=== PATIENT | male | born 1985 | race African-American/Black ===

== ENCOUNTER 2016-09-23 16:17 | Emergency (ER) | payer OTHER, MEDICAID ==
[~2016-09-23] VITALS: Ht 188 cm; Wt 132.0 kg
[~2016-09-23 16:17] MED LIST: BUSP5TAB3 PO; DEPA250T2 PO; DICL75 PO; DIME240C; PRAZ2 PO; PROC1TAB8 PO; SERT-129 PO; TOPI25CA PO; VITA100020 SL
[2016-09-23 16:18] VITALS: BP 140/85; PULSE 112; RESP 20; TEMP 97.1; O2SAT 94
--- NOTE | 2016-09-23 17:37 | PD ---
HPI Chief Complaint: Abdominal Pain Time Seen by Provider: 17:33 Travel History International Travel<30 days: No Contact w/Intl Traveler<30days: No Traveled to known affect area: No History of Present Illness HPI Patient's 31-year-old male presenting to emergency for evaluation of right lower quadrant pain. Patient states the pain is been ongoing for 3 days. He went to his primary doctor this morning who advised him to come to emergency department for evaluation. Patient also endorses nausea with no vomiting. He states pain is intermittent, it starts to ache and then goes to stabbing his gotten progressively worse over the last 3 days. He states the pain is currently a 4 out of 10. He denies any changes bowel habits, shortness of breath, chest pain, fever, chills. Patient's past medical history significant for multiple sclerosis, migraines, depression. PFSH Past Medical History Autoimmune Disease: Yes (multiple sclerosis) Depression: Yes Chest Pain: Yes Diabetes: No Diminished Hearing: No Psychiatric: Yes (PTSD) Migraines: Yes Seizures: No Social History Alcohol Use: Yes Tobacco Use: Yes Substance Use: No (PT DENIES) Allergies-Medications (Allergen,Severity, Reaction): Coded Allergies: Flu Vaccine (Verified Allergy, Severe, 09/23/16) Reported Meds & Prescriptions Reported Meds & Active Scripts Active Compazine 10 Mg Tab (Prochlorperazine Maleate) 10 Mg Tab 10 Mg PO TID PRN TAKE WITH BENADRYL Reported Vitamin B-12 1000 MCG SL TAB (Cyanocobalamin) 1,000 Mcg Subl 1,000 Mcg SL DAILY Topiramate 25 Mg Cap 25 Mg PO BID Sertraline 100 mg (Sertraline HCl) 100 Mg Tab 2 Tab PO DAILY Buspar (Buspirone HCl) 5 Mg Tab 5 Mg PO TID Tecfidera (Dimethyl Fumarate) 240 Mg Cap BID Diclofenac Sodium 75 Mg Tab 75 Mg PO BID Prazosin Hcl (Prazosin HCl) 2 Mg Cap 2 Mg PO Q12 Depakote 250 mg (Divalproex Sodium) 250 Mg Tab 1,500 Mg PO HS Review of Systems Except as stated in HPI: all other systems reviewed are Neg Gastrointestinal: Positive: Nausea, Abdominal Pain Physical Exam Narrative GENERAL: Obese, well-developed, alert Afro-Vincentian male. Appears uncomfortable , no acute distress. SKIN: Warm and dry. HEAD: Atraumatic. Normocephalic. EYES: Pupils equal and round. No scleral icterus. No injection or drainage. ENT: No nasal bleeding or discharge. Mucous membranes pink and moist. NECK: Trachea midline. No JVD. CARDIOVASCULAR: Tachycardic. No murmur appreciated. RESPIRATORY: No accessory muscle use. Clear to auscultation. Breath sounds equal bilaterally. GASTROINTESTINAL: Abdomen soft, moderate tenderness to palpation in right lower quadrant, positive guarding, no rebound. Positive bowel sounds. MUSCULOSKELETAL: No obvious deformities. No clubbing. No cyanosis. No edema. NEUROLOGICAL: Awake and alert. No obvious cranial nerve deficits. Motor grossly within normal limits. Normal speech. PSYCHIATRIC: Appropriate mood and affect; insight and judgment normal. Data Data Last Documented VS Vital Signs Date Time Temp Pulse Resp B/P Pulse Ox O2 Delivery O2 Flow Rate FiO2 09/23/16 16:18 97.1 112 20 140/85 94 Room Air MDM Medical Decision Making Medical Screen Exam Complete: Yes Emergency Medical Condition: Yes Interpretation(s) Vital Signs Date Time Temp Pulse Resp B/P Pulse Ox O2 Delivery O2 Flow Rate FiO2 09/23/16 16:18 97.1 112 20 140/85 94 Room Air Differential Diagnosis Appendicitis versus diverticulitis versus musculoskeletal pain versus obstruction versus enteritis versus other Narrative Course Patient is a 31-year-old male presenting to the emergency department on the advice of his primary doctor for evaluation of right lower quadrant pain that started 3 days ago. Patient is tender on exam, he is mildly nauseated. His vital signs reveal an elevated heart rate at 112 otherwise his vital signs are stable. Patient removed medical bed at this time for further evaluation management. Labs ordered and pending. Care patient will be assumed by provider medical pod Nan Pimentel Sep 23, 2016 17:37
[2016-09-23] MEDS ORDERED: SODIUM CHLORIDE 0.9% FLUSH 5 ML FLUSH IVF PRN (17:45)
[2016-09-23 17:53] VITALS: BP 157/95; PULSE 98; RESP 20; TEMP 98.3; O2SAT 94
[2016-09-23] MEDS ORDERED: ERGO1CAP10 PO (17:53)
[2016-09-23] MEDS ORDERED: DIME120C PO (17:53)
[2016-09-23] MEDS ORDERED: BACL10TA PO (17:53)
--- NOTE | 2016-09-23 17:56 | PD ---
Physical Exam Narrative 31-year-old male complains of coughing congestion and right lower quadrant abdominal pain. Patient states the coughing congestion started a week ago. Patient states that the cough is nonproductive persistent cough. Patient denies any chest pain or shortness of breath. Patient states that he started having sharp intermittent right lower quadrant abdominal pain for the past 2 days. Patient denies any pain radiation. Patient denies any nausea vomiting diarrhea. Patient denies any dysuria or frequency. Patient denies any fever chills. Patient was seen by personal physician today and referred the ED for evaluation. On a scale of 1-10 the pain is a 4. On physical examination the lung is clear. Patient has mild tenderness on palpation right lower quadrant of the abdomen. No rebound tenderness. No mass. Data Data Last Documented VS Vital Signs Date Time Temp Pulse Resp B/P Pulse Ox O2 Delivery O2 Flow Rate FiO2 09/23/16 16:18 97.1 112 20 140/85 94 Room Air Orders Complete Blood Count With Diff (09/23/16 17:33) Comprehensive Metabolic Panel (09/23/16 17:33) Lipase (09/23/16 17:33) Lactic Acid (09/23/16 17:33) Prothrombin Time / Inr (Pt) (09/23/16 17:33) Act Partial Throm Time (Ptt) (09/23/16 17:33) Urinalysis - C+S If Indicated (09/23/16 17:33) Sodium Chloride 0.9% Flush (Ns Flush) (09/23/16 17:45) Ct Abd/Pel W Iv Contrast(Rout) (09/23/16 17:49) Chest, Single Ap (09/23/16 17:49) [facility] Supervised Visit with MARVIN: Yes Tolu Sanders MD Sep 23, 2016 17:56
[2016-09-23] MEDS ORDERED: SODIUM CHLOR 0.9% 1000 ML INJ 1,000 ML IV SCH (18:00)
[2016-09-23] MEDS ORDERED: ONDANSETRON HCL 4 MG/2 ML VIAL IV PUSH ONE (18:00)
[2016-09-23] MEDS ORDERED: MORPHINE SULFATE 4 MG/ML INJ IV PUSH ONE (18:00)
[2016-09-23 18:04] LABS: BASOPHIL % 0.5 % (0.0-2.0); EOSINOPHIL # 0.1 TH/MM3 (0-0.4); EOSINOPHIL % 1.6 % (0.0-4.0); HEMO FLAGS DIFF FINAL; MEAN CELL VOLUME 89.4 FL (80.0-100.0); MEAN CORPUSCULAR HEMOGLOBIN 31.2 PG (27.0-34.0); MEAN CORPUSCULAR HGB CONC 34.9 % (32.0-36.0); NEUT % 60.9 % (16.0-70.0); PLATELET COUNT 215 TH/MM3 (150-450); RED BLOOD COUNT 4.92 MIL/MM3 (4.50-5.90); RED CELL DISTRIBUTION WIDTH 12.8 % (11.6-17.2); WHITE BLOOD COUNT 8.2 TH/MM3 (4.0-11.0)
[2016-09-23 18:09] LABS: APTT (PATIENT) 26.6 SEC (24.3-30.1); PROTHROMBIN TIME - PATIENT 10.5 SEC (9.8-11.6)
--- NOTE | 2016-09-23 18:12 | RADRPT ---
EXAM DATE/TIME: 09/23/2016 18:03 [facility] COMPARISON: CHEST PA & LAT, January 31, 2015, 9:41. INDICATIONS : Cough. MEDICAL HISTORY : None. SURGICAL HISTORY : None. ENCOUNTER: Initial ACUITY: 1 week PAIN SCORE: 0/10 LOCATION: Bilateral chest FINDINGS: A single view of the chest demonstrates the lungs to be symmetrically aerated without evidence of mas s, infiltrate or effusion. The cardiomediastinal contours are unremarkable. Osseous structures are intact. CONCLUSION: No evidence of acute cardiopulmonary disease. Lj Cantu MD on September 23, 2016 at 18:08 Board Certified Radiologist. This report was verified electronically.
[2016-09-23 18:17] LABS: BLOOD, URINE NEG (NEG); COMMENT (UR) CULT NOT INDICATED; CULTURE IF INDICATED CULT NOT INDICATED; GLUCOSE,URINE NEG (NEG); KETONE, URINE NEG (NEG); MUCUS URINE FEW /lpf (OCC); NITRITE,URINE NEG (NEG); SQUAMOUS EPITHELIAL CELL URINE <1 /hpf (0-5); URINE COLOR YELLOW (YELLW/STRAW)
[2016-09-23 18:28] LABS: ALKALINE PHOSPHATASE 74 U/L (45-117); TOTAL BILIRUBIN ADULT 0.4 MG/DL (0.2-1.0)
[2016-09-23 18:29] LABS: ALT (GPT) 59 U/L (12-78); ANION GAP 9 MEQ/L (5-15); AST (GOT) 36 U/L (15-37); BICARBONATE 25.3 MEQ/L (21.0-32.0); BLOOD UREA NITROGEN 12 MG/DL (7-18); CHLORIDE 108 MEQ/L (98-107); GLOMERULAR FILTRATION RATE 120 ML/MIN (>89); POTASSIUM 4.1 MEQ/L (3.5-5.1); SODIUM (NA) 142 MEQ/L (136-145)
--- NOTE | 2016-09-23 19:14 | PD ---
Physical Exam Narrative General: The patient is a well-developed well-nourished male in no acute distress. Head and Neck exam: Head is normocephalic atraumatic. Eyes: Pupils are equal round and reactive to light. Nose: Midline septum with erythematous edematous nasal mucosa and a yellow nasal discharge. Mouth: Dentition unremarkable. Moist mucus membranes. Posterior oropharynx is erythematous. No tonsillar hypertrophy. Uvula midline. Airway patent. Neck: No palpable lymphadenopathy. No nuchal rigidity. No thyromegaly. Cardiovascular: Regular rate and rhythm without murmurs, gallops, or rubs. Lungs: Clear to auscultation bilaterally. No wheezes, rhonchi, or rales. Abdomen: Soft, with discomfort on palpation in the right lower quadrant of the abdomen. No other tenderness on palpation of the other quadrants of the abdomen or the suprapubic area. No guarding, rebound, or rigidity. Normal bowel sounds are audible. Negative Chong's sign. Extremities: No clubbing, cyanosis, or edema. Back: No spinous process tenderness to palpation. No costovertebral angle tenderness to palpation. Neurologic Exam: Grossly nonfocal. Skin Exam: No rash noted. Intact skin that is warm and dry. Data Data Last Documented VS Vital Signs Date Time Temp Pulse Resp B/P Pulse Ox O2 Delivery O2 Flow Rate FiO2 09/23/16 20:00 93 16 143/70 96 Room Air 09/23/16 17:53 98.3 Orders Complete Blood Count With Diff (09/23/16 17:33) Comprehensive Metabolic Panel (09/23/16 17:33) Lipase (09/23/16 17:33) Lactic Acid (09/23/16 17:33) Prothrombin Time / Inr (Pt) (09/23/16 17:33) Act Partial Throm Time (Ptt) (09/23/16 17:33) Urinalysis - C+S If Indicated (09/23/16 17:33) Sodium Chloride 0.9% Flush (Ns Flush) (09/23/16 17:45) Ct Abd/Pel W Iv Contrast(Rout) (09/23/16 17:49) Chest, Single Ap (09/23/16 17:49) Morphine Inj (Morphine Inj) (09/23/16 18:00) Ondansetron Inj (Zofran Inj) (09/23/16 18:00) Sodium Chlor 0.9% 1000 Ml Inj (Ns 1000 M (09/23/16 18:00) Iohexol 350 Inj (Omnipaque 350 Inj) (09/23/16 19:40) Labs Laboratory Tests Test 09/23/16 09/23/16 17:40 17:55 White Blood Count 8.2 TH/MM3 Red Blood Count 4.92 MIL/MM3 Hemoglobin 15.3 GM/DL Hematocrit 44.0 % Mean Corpuscular Volume 89.4 FL Mean Corpuscular Hemoglobin 31.2 PG Mean Corpuscular Hemoglobin 34.9 % Concent Red Cell Distribution Width 12.8 % Platelet Count 215 TH/MM3 Mean Platelet Volume 8.2 FL Neutrophils (%) (Auto) 60.9 % Lymphocytes (%) (Auto) 24.0 % Monocytes (%) (Auto) 13.0 % Eosinophils (%) (Auto) 1.6 % Basophils (%) (Auto) 0.5 % Neutrophils # (Auto) 5.0 TH/MM3 Lymphocytes # (Auto) 2.0 TH/MM3 Monocytes # (Auto) 1.1 TH/MM3 Eosinophils # (Auto) 0.1 TH/MM3 Basophils # (Auto) 0.0 TH/MM3 CBC Comment DIFF FINAL Differential Comment Prothrombin Time 10.5 SEC Prothromb Time International 1.0 RATIO Ratio Activated Partial 26.6 SEC Thromboplast Time Sodium Level 142 MEQ/L Potassium Level 4.1 MEQ/L Chloride Level 108 MEQ/L Carbon Dioxide Level 25.3 MEQ/L Anion Gap 9 MEQ/L Blood Urea Nitrogen 12 MG/DL Creatinine 0.90 MG/DL Estimat Glomerular Filtration 120 ML/MIN Rate Random Glucose 100 MG/DL Lactic Acid Level 1.3 mmol/L Calcium Level 8.9 MG/DL Total Bilirubin 0.4 MG/DL Aspartate Amino Transf 36 U/L (AST/SGOT) Alanine Aminotransferase 59 U/L (ALT/SGPT) Alkaline Phosphatase 74 U/L Total Protein 7.6 GM/DL Albumin 3.9 GM/DL Lipase 111 U/L Urine Color YELLOW Urine Turbidity CLEAR Urine pH 7.0 Urine Specific [place] 1.028 Urine Protein NEG mg/dL Urine Glucose (UA) NEG mg/dL Urine Ketones NEG mg/dL Urine Occult Blood NEG Urine Nitrite NEG Urine Bilirubin NEG Urine Urobilinogen 2.0 MG/DL Urine Leukocyte Esterase NEG Urine RBC 1 /hpf Urine WBC 1 /hpf Urine Squamous Epithelial <1 /hpf Cells Urine Mucus FEW /lpf Microscopic Urinalysis Comment CULT NOT INDICATED MDM Medical Record Reviewed: Yes Supervised Visit with MARVIN: No Narrative Course During the course of the patients emergency department visit, the patients history, examination, and differential diagnosis were reviewed with the patient. The patient had IV access obtained and blood work sent for analysis. The patient was checked out to me by Dr. Sanders. Please see his complete history and physical. The patient reportedly presented with cough, congestion, subsequently followed by right lower quadrant abdominal pain. The patients laboratory studies were reviewed and remarkable for a white count of 8.2, hemoglobin 15.3, platelets 2:15 with 13 monocytes, CMP is unremarkable, lipase 111, lactate 1.3, PT PTT unremarkable. Urinalysis unremarkable, no signs of infection, chest x-ray showed no acute abnormality. CT scan of the abdomen and pelvis reveals apparent mild wall thickening of the urinary bladder , cystitis possible in the proper clinical setting, fatty liver, otherwise essentially normal CT scan of the abdomen and pelvis, normal appendix. The patient will be discharged home with a prescription for azithromycin given his upper respiratory symptoms, sinusitis, bronchitis. The patient was instructed regarding the importance of following up closely with his primary care physician for reexamination The patient is resting comfortably and feels better, is alert and in no distress. The patients results and examination findings were discussed with the patient. The repeat examination is unremarkable and benign. The history, exam, diagnostic testing, and current condition do not suggest any significant pathology to warrant further testing, continued ED treatment, admission, or surgical evaluation at this point. The vital signs have been stable. The patient does not have uncontrollable pain, intractable vomiting, or other significant symptoms. The patient's condition is stable and appropriate for discharge. The patient will pursue further outpatient evaluation with a primary care physician or other designated or consulting physician as indicated in the discharge instructions. The patient expressed understanding and was agreeable with this plan. Diagnosis Primary Impression: Bronchitis Additional Impression: Abdominal pain Qualified Code: R10.31 - Right lower quadrant abdominal pain Referrals: Primary Care Physician Patient Instructions: Abdominal Pain (ED), Acute Bronchitis (ED), General Instructions Med/Other Pt SpecificInfo: Prescription(s) given Scripts Azithromycin (Zithromax Z-Jerome)250 Mg [id number] Mg PO DIRECTED #1 DSPK Ref 0 500 MG (2 tabs) day 1, then 1 tab days 2-5. Prov:Liza Abdi MD 09/23/16 Disposition: 01 DISCHARGE HOME Condition: Stable Liza Abdi MD Sep 23, 2016 19:14
[2016-09-23] MEDS ORDERED: IOHEXOL 350 MG/ML 10 ML VIAL (for RAD DIAG) IV ONE (19:40)
--- NOTE | 2016-09-23 19:55 | RADRPT ---
EXAM DATE/TIME: 09/23/2016 19:34 [facility] COMPARISON: No previous studies available for comparison. INDICATIONS : Right lower qaudrant pain with nausea past 3 days. IV CONTRAST: 96 cc Omnipaque 350 (iohexol) IV ORAL CONTRAST: No oral contrast ingested. RADIATION DOSE: 25.69 CTDIvol (mGy) MEDICAL HISTORY : None SURGICAL HISTORY : None. ENCOUNTER: Initial ACUITY: 3 days PAIN SCALE: 6/10 LOCATION: Right lower quadrant TECHNIQUE: Volumetric scanning of the abdomen and pelvis was performed. Using automated exposure control and ad justment of the mA and/or kV according to patient size, radiation dose was kept as low as reasonably achievable to obtain optimal diagnostic quality images. FINDINGS: Liver is fatty. Spleen, pancreas, adrenal glands and kidneys are all normal. No obstruction or inflammatory changes are seen of the GI tract. The appendix is well-visualized and normal. Only a small amount of urine in the bladder at the time of imaging. Accounting for this, there seems to be some wall thickening. CONCLUSION: 1. Apparent mild wall thickening of the urinary bladder. Cystitis possible in the proper clinical set ting. 2. Fatty liver. 3. Otherwise essentially normal CT of the abdomen and pelvis. Normal appendix. Lj Cantu MD on September 23, 2016 at 19:51 Board Certified Radiologist. This report was verified electronically.
[2016-09-23 20:00] VITALS: BP 143/70; PULSE 93; RESP 16; O2SAT 96
[2016-09-23] MEDS ORDERED: ZITHTAB PO (20:23)
== END 2016-09-24 00:43 | disposition home or self-care (01) ==
LOC: NEPC 16:17
DX: J40 Bronchitis, not specified as acute or chronic (principal); R10.31 Right lower quadrant pain; Z72.0 Tobacco use
CPT/HCPCS: 71010; 74177; 80053; 81001; 83605; 83690; 85025; 85610; 85730; 96374; 96375; 99284; J2270; J2405; J7030; Q9967

== ENCOUNTER 2017-01-02 03:14 | Emergency (ER) | payer OTHER, MEDICAID ==
[~2017-01-02] VITALS: Ht 188 cm; Wt 127.3 kg
[~2017-01-02 03:14] MED LIST changes: +BACL10TA PO; -BUSP5TAB3 PO; -DEPA250T2 PO; -DICL75 PO; +DIME120C PO; -DIME240C; +ERGO1CAP10 PO; -PRAZ2 PO; -PROC1TAB8 PO; -SERT-129 PO; -TOPI25CA PO; -VITA100020 SL; +ZITHTAB PO
[2017-01-02 03:17] VITALS: BP 135/79; PULSE 95; RESP 16; TEMP 97.9; O2SAT 98
[2017-01-02 03:23] VITALS: BP 112/63
[2017-01-02] MEDS ORDERED: SODIUM CHLOR 0.9% 1000 ML INJ 1,000 ML IV ONE ×2 (03:31→03:45)
[2017-01-02] MEDS ORDERED: TOPI1CAP16 PO (03:35)
[2017-01-02] MEDS ORDERED: VENL50TA PO (03:35)
[2017-01-02] MEDS ORDERED: PRAZ2CAP PO (03:39)
[2017-01-02] MEDS ORDERED: SODIUM CHLORIDE 0.9% FLUSH 10 ML FLUSH IVF PRN (03:45)
[2017-01-02 03:57] LABS: AUTOMATED NEUTROPHIL # 9.2 TH/MM3 (1.8-7.7); BASOPHIL # 0.1 TH/MM3 (0-0.2); BASOPHIL % 0.6 % (0.0-2.0); EOSINOPHIL % 0.2 % (0.0-4.0); HEMATOCRIT 44.6 % (39.0-51.0); HEMO FLAGS DIFF FINAL; LYMPH % 14.7 % (9.0-44.0); LYMPHOCYTE # 1.7 TH/MM3 (1.0-4.8); MEAN CELL VOLUME 89.9 FL (80.0-100.0); MEAN CORPUSCULAR HEMOGLOBIN 30.8 PG (27.0-34.0); MEAN CORPUSCULAR HGB CONC 34.2 % (32.0-36.0); MONO % 7.1 % (0.0-8.0); NEUT % 77.4 % (16.0-70.0); PLATELET COUNT 209 TH/MM3 (150-450); RED BLOOD COUNT 4.96 MIL/MM3 (4.50-5.90); RED CELL DISTRIBUTION WIDTH 12.9 % (11.6-17.2); WHITE BLOOD COUNT 11.9 TH/MM3 (4.0-11.0)
[2017-01-02 04:15] LABS: ALKALINE PHOSPHATASE 79 U/L (45-117); TOTAL BILIRUBIN ADULT 0.5 MG/DL (0.2-1.0)
[2017-01-02 04:19] LABS: ALT (GPT) 67 U/L (12-78); ANION GAP 10 MEQ/L (5-15); APTT (PATIENT) 25.1 SEC (24.3-30.1); AST (GOT) 47 U/L (15-37); BICARBONATE 22.1 MEQ/L (21.0-32.0); BLOOD UREA NITROGEN 12 MG/DL (7-18); CHLORIDE 107 MEQ/L (98-107); GLOMERULAR FILTRATION RATE 111 ML/MIN (>89); MAGNESIUM 2.1 MG/DL (1.5-2.5); POTASSIUM 3.9 MEQ/L (3.5-5.1); PROTHROMBIN TIME - PATIENT 11.1 SEC (9.8-11.6); SODIUM (NA) 139 MEQ/L (136-145)
[2017-01-02 04:23] LABS: ACETAMINOPHEN LESS THAN 2.0 MCG/ML (10.0-30.0)
[2017-01-02] MEDS ORDERED: ONDANSETRON HCL 4 MG/2 ML VIAL IV PUSH ONE (04:30)
--- NOTE | 2017-01-02 04:58 | PD ---
HPI Chief Complaint: Altered Mental Status Time Seen by Provider: 03:31 Travel History International Travel<30 days: No Contact w/Intl Traveler<30days: No Traveled to known affect area: No History of Present Illness HPI 31-year-old male presents to the emergency department by private transportation for complaint of not feeling well after taking his medication for depression multiple sclerosis drinking alcohol and smoking marijuana. Patient has been on his current medications for a very long time no recent adjustment to the medications. Patient reports she does not normally drink alcohol or smoke marijuana with these medications. Patient states he feels anxious and weak as well as has broken out to a sweat confused and very concerned that something wrong is occurring. Patient denies any suicidal or homicidal ideology. Patient 's had no recent febrile illness. Patient states his entire body hurts 15/10 in intensity. Patient complains of muscle cramping. Patient denies any injury or fall. PFSH Past Medical History Narrative Medical Depression multiple sclerosis chest pain posttraumatic stress disorder migraine ; alcohol use tobacco use marijuana use; nursing notes reviewed Autoimmune Disease: Yes (multiple sclerosis) Depression: Yes Chest Pain: Yes Diabetes: No Diminished Hearing: No Psychiatric: Yes (PTSD) Migraines: Yes Seizures: No Social History Alcohol Use: Yes (RARE) Tobacco Use: Yes (CIGARS) Substance Use: Yes (CANNABIS) Allergies-Medications (Allergen,Severity, Reaction): Coded Allergies: Flu Vaccine (Verified Allergy, Severe, 09/23/16) Reported Meds & Prescriptions Reported Meds & Active Scripts Active Reported Prazosin (Prazosin HCl) 2 Mg Cap 2 Mg PO BID Effexor (Venlafaxine HCl) 50 Mg Tab 50 Mg PO Q8H Topiramate ER (Topiramate) 25 Mg Cap 25 Mg PO DAILY Tecfidera (Dimethyl Fumarate) 120 Mg Cap 120 Mg PO BID For 7 days Baclofen 10 Mg Tab 10 Mg PO HS Review of Systems Except as stated in HPI: all other systems reviewed are Neg General / Constitutional: No: Fever, Chills HENT: No: Congestion Cardiovascular: Positive: Chest Pain or Discomfort Respiratory: Positive: Shortness of Breath Gastrointestinal: Positive: Nausea Genitourinary: Positive: Flank Pain Musculoskeletal: Positive: Myalgias, Arthralgias, Cramping, Pain Skin: No Rash Neurologic: Positive: Weakness, Dizziness, No: Syncope, Focal Abnormalities, Coordination Problem Psychiatric: Positive: Anxiety, Substance Abuse, No: Suicidal Ideations, Homicidal Ideation Endocrine: No: Heat Intolerance Hematologic/Lymphatic: No: Easy Bruising Physical Exam Narrative GENERAL: Well-developed well-nourished male appears anxious diaphoretic and no respiratory distress; GCS 14 SKIN: Warm and diaphoretic. HEAD: Atraumatic. Normocephalic. EYES: Pupils equal and round. No scleral icterus. No injection or drainage. ENT: No nasal bleeding or discharge. Mucous membranes pink and moist. NECK: Trachea midline. No JVD. CARDIOVASCULAR: Increased Regular rate and rhythm. RESPIRATORY: No accessory muscle use. Clear to auscultation. Breath sounds equal bilaterally. GASTROINTESTINAL: Abdomen soft, non-tender, nondistended. Hepatic and splenic margins not palpable. MUSCULOSKELETAL: Extremities without clubbing, cyanosis, or edema. No obvious deformities. NEUROLOGICAL: Awake and alert. No obvious cranial nerve deficits. Motor grossly within normal limits. Five out of 5 muscle strength in the arms and legs. Normal speech. PSYCHIATRIC: Anxious mood and affect; insight and judgment normal. Data Data Last Documented VS Vital Signs Date Time Temp Pulse Resp B/P Pulse Ox O2 Delivery O2 Flow Rate FiO2 01/02/17 07:11 109 16 98 01/02/17 06:01 147/68 Room Air 01/02/17 03:17 97.9 Orders Electrocardiogram (01/02/17 03:31) Complete Blood Count With Diff (01/02/17 03:31) Comprehensive Metabolic Panel (01/02/17 03:31) Prothrombin Time / Inr (Pt) (01/02/17 03:31) Act Partial Throm Time (Ptt) (01/02/17 03:31) Urinalysis - C+S If Indicated (01/02/17 03:31) Chest, Single Ap (01/02/17 03:31) Blood Glucose (01/02/17 03:31) Iv Access Insert/Monitor (01/02/17 03:31) Ecg Monitoring (01/02/17 03:31) Oximetry (01/02/17 03:31) Sodium Chloride 0.9% Flush (Ns Flush) (01/02/17 03:45) Sodium Chlor 0.9% 1000 Ml Inj (Ns 1000 M (01/02/17 03:31) Drug Screen, Random Urine (01/02/17 03:31) Alcohol (Ethanol) (01/02/17 03:31) Salicylates (Aspirin) (01/02/17 03:31) Tylenol (Acetaminophen) (01/02/17 03:31) Magnesium (Mg) (01/02/17 03:31) Valproic Acid (Depakene) (01/02/17 03:31) Sodium Chlor 0.9% 1000 Ml Inj (Ns 1000 M (01/02/17 03:45) Troponin I (01/02/17 03:35) Ondansetron Inj (Zofran Inj) (01/02/17 04:30) Ketorolac Inj (Toradol Inj) (01/02/17 06:30) Labs Laboratory Tests Test 01/02/17 01/02/17 03:35 05:55 White Blood Count 11.9 TH/MM3 Red Blood Count 4.96 MIL/MM3 Hemoglobin 15.3 GM/DL Hematocrit 44.6 % Mean Corpuscular Volume 89.9 FL Mean Corpuscular Hemoglobin 30.8 PG Mean Corpuscular Hemoglobin 34.2 % Concent Red Cell Distribution Width 12.9 % Platelet Count 209 TH/MM3 Mean Platelet Volume 8.4 FL Neutrophils (%) (Auto) 77.4 % Lymphocytes (%) (Auto) 14.7 % Monocytes (%) (Auto) 7.1 % Eosinophils (%) (Auto) 0.2 % Basophils (%) (Auto) 0.6 % Neutrophils # (Auto) 9.2 TH/MM3 Lymphocytes # (Auto) 1.7 TH/MM3 Monocytes # (Auto) 0.8 TH/MM3 Eosinophils # (Auto) 0.0 TH/MM3 Basophils # (Auto) 0.1 TH/MM3 CBC Comment DIFF FINAL Differential Comment Prothrombin Time 11.1 SEC Prothromb Time International 1.0 RATIO Ratio Activated Partial 25.1 SEC Thromboplast Time Sodium Level 139 MEQ/L Potassium Level 3.9 MEQ/L Chloride Level 107 MEQ/L Carbon Dioxide Level 22.1 MEQ/L Anion Gap 10 MEQ/L Blood Urea Nitrogen 12 MG/DL Creatinine 0.96 MG/DL Estimat Glomerular Filtration 111 ML/MIN Rate Random Glucose 155 MG/DL Calcium Level 9.2 MG/DL Magnesium Level 2.1 MG/DL Total Bilirubin 0.5 MG/DL Aspartate Amino Transf 47 U/L (AST/SGOT) Alanine Aminotransferase 67 U/L (ALT/SGPT) Alkaline Phosphatase 79 U/L Troponin I LESS THAN 0.02 NG/ML Total Protein 8.0 GM/DL Albumin 4.3 GM/DL Salicylates Level 1.9 MG/DL Acetaminophen Level LESS THAN 2.0 MCG/ML Valproic Acid (Depakene) Level LESS THAN 3 MCG/ML Ethyl Alcohol Level 3 MG/DL Urine Color YELLOW Urine Turbidity CLEAR Urine pH 8.5 Urine Specific [place] 1.016 Urine Protein 30 mg/dL Urine Glucose (UA) NEG mg/dL Urine Ketones NEG mg/dL Urine Occult Blood NEG Urine Nitrite NEG Urine Bilirubin NEG Urine Urobilinogen 2.0 MG/DL Urine Leukocyte Esterase NEG Urine RBC LESS THAN 1 /hpf Urine WBC LESS THAN 1 /hpf Urine Mucus FEW /lpf Microscopic Urinalysis Comment CULT NOT INDICATED Urine Opiates Screen NEG Urine Barbiturates Screen NEG Urine Amphetamines Screen NEG Urine Benzodiazepines Screen NEG Urine Cocaine Screen NEG Urine Cannabinoids Screen POS MDM Medical Decision Making Medical Screen Exam Complete: Yes Emergency Medical Condition: Yes Medical Record Reviewed: Yes Interpretation(s) EKG: Sinus tachycardia no acute ST elevation or injury pattern change noted troponin I: less than 0.02, not elevated Vital Signs Date Time Temp Pulse Resp B/P Pulse Ox O2 Delivery O2 Flow Rate FiO2 01/02/17 03:23 112/63 01/02/17 03:17 97.9 95 16 135/79 98 Room Air CBC & BMP Diagram 01/02/17 03:35 UDS: Cannabis Serum alcohol: 3, not elevated Salicylate: 1.9, not elevated Acetaminophen: Less than 2.0, not elevated Urinalysis: Within normal range Differential Diagnosis Polysubstance ingestion, overdose accidental versus intentional, alcohol intoxication, electrolyte disturbance, arrhythmia, ACS, TIA, MS exacerbation Narrative Course Patient placed on cardiac catheterization technician IV access obtained specimens collected and sent for resulting; patient administered normal saline bolus 1 L along with Zofran 4 mg IV Lab values pending patient clinically improving; gcs 15 Lab values in normal range Patient clinically improving (gcs 15) states that he knew better than to mix his medications with alcohol and marijuana but he had had an argument with his and when he gets angry sometimes he drinks; patient states symptoms do not remind him of a flare of his multiple sclerosis; last MS flare was approximately 2 weeks ago and affected his left knee and foot. Patient reports he is upset because he has appointment this morning in [place] at 10:30 AM [facility] and needs to make that appointment Urinalysis is normal urine tox screen is consistent with cannabis. Will attempt trial of oral hydration Diagnosis Primary Impression: Adverse drug interaction Qualified Code: T50.905A - Adverse drug interaction, initial encounter Referrals: Neurologist 1 day Keep appointment as scheduled Primary Care Physician call for appointment Patient Instructions: General Instructions Additional Instructions: Increase fluid hydration Follow-up with your primary care provider Follow-up with your neurologist as scheduled Return to the emergency department for any concerns or change in condition Continue current medications as per the prescribed Avoid any recreational drugs or alcohol on your current medication regimen Med/Other Pt SpecificInfo: No Change to Meds Disposition: 01 DISCHARGE HOME Condition: Stable Millie Back MD Jan 02, 2017 04:58
--- NOTE | 2017-01-02 04:59 | RADRPT ---
EXAM DATE/TIME: 01/02/2017 03:48 [facility] COMPARISON: CHEST SINGLE AP, September 23, 2016, 18:03. INDICATIONS : Body cramps due to a reaction to a new medication. MEDICAL HISTORY : None. SURGICAL HISTORY : None. ENCOUNTER: Initial ACUITY: 1 day PAIN SCORE: 10/10 LOCATION: Bilateral Entire Body FINDINGS: A single view of the chest demonstrates the lungs to be symmetrically aerated without evidence of mas s, infiltrate or effusion. The cardiomediastinal contours are unremarkable. Osseous structures are intact. CONCLUSION: No acute disease. Lj Cooney MD on January 02, 2017 at 4:56 Board Certified Radiologist. This report was verified electronically.
[2017-01-02 06:01] VITALS: BP 147/68; PULSE 114; RESP 18; O2SAT 96
[2017-01-02 06:04] LABS: BLOOD, URINE NEG (NEG); COMMENT (UR) CULT NOT INDICATED; CULTURE IF INDICATED CULT NOT INDICATED; GLUCOSE,URINE NEG (NEG); KETONE, URINE NEG (NEG); MUCUS URINE FEW /lpf (OCC); NITRITE,URINE NEG (NEG); PH, URINE 8.5 (5.0-8.5); URINE COLOR YELLOW (YELLW/STRAW)
[2017-01-02 06:11] LABS: AMPHETAMINE, URINE NEG (NEG); BARBITURATES, URINE NEG (NEG); COCAINE, URINE NEG (NEG)
[2017-01-02] MEDS ORDERED: KETOROLAC TROMETHAMINE 30 MG/ML (IVP) VIAL IV PUSH ONE (06:30)
[2017-01-02 07:11] VITALS: PULSE 109; RESP 16; O2SAT 98
[2017-01-02 08:10] VITALS: BP 134/85
--- NOTE | 2017-01-02 11:25 | EKG ---
Date Performed: 01/02/2017 Time Performed: 03:29:18 PTAGE: 31 years EKG: Sinus rhythm LEFT VENTRICULAR HYPERTROPHY AND ST-T CHANGE ABNORMAL ECG INTERPRETATION BASED ON A DEFAULT AGE OF 5 0 YEARS NO PREVIOUS TRACING DOCTOR: Anthony Gregory Interpretating Date/Time 01/02/2017 11:24:34
== END 2017-01-02 08:14 | disposition home or self-care (01) ==
LOC: NEPC 03:14
DX: R53.1 Weakness (principal); R61 Generalized hyperhidrosis; R41.0 Disorientation, unspecified; F41.9 Anxiety disorder, unspecified; M79.1 Myalgia; R25.2 Cramp and spasm; T50.905A Adverse effect of unspecified drugs, medicaments and biological substances, initial encounter; R94.31 Abnormal electrocardiogram [ECG] [EKG]; G35 Multiple sclerosis; Z72.0 Tobacco use; Z86.59 Personal history of other mental and behavioral disorders; Z86.69 Personal history of other diseases of the nervous system and sense organs
CPT/HCPCS: 71010; 80053; 80164; 80307; 81001; 83735; 84484; 85025; 85610; 85730; 93005; 96361; 96374; 96375; 99285; J1885; J2405; J7030